=== PATIENT | male | born 1960 | race Caucasian/White ===

== ENCOUNTER 2019-03-08 12:34 | Emergency (ER) | payer OTHER ==
--- NOTE | 2019-03-08 13:00 | ED Physician Documentation ---
PD HPI UPPER EXT INJURY - Stated complaint Stated Complaint: LT RING FINGER INJURY - Chief complaint Chief Complaint: Laceration - History obtained from History obtained from: Patient - History of Present Illness Location: Left, Finger Type of injury: Crush (wood splitter caught tip of finger with flap of tissue laceration and avulsion of nail.) Where injury occurred: Home Timing - onset: Today Timing - details: Abrupt onset, Still present Worsened by: Moving, Palpating Associated symptoms: No: Weakness, Numbness Review of Systems Skin: reports: Laceration (s) Neurologic: denies: Focal weakness, Numbness PD PAST MEDICAL HISTORY - Past Medical History Cardiovascular: None Respiratory: None Psych: None Musculoskeletal: None - Present Medications Home Medications: Ambulatory Orders Medication Instructions Recorded Confirmed Hydrocodone/Acetaminophen [Mosca 1 each PO Q6H PRN #15 tablet 03/08/19 5-325 Tablet] - Allergies Allergies/Adverse Reactions: Allergies Allergy/AdvReac Type Severity Reaction Status Date / Time No Known Drug Allergies Allergy Verified 03/08/19 12:52 PD ED PE NORMAL - Vitals Vital signs reviewed: Yes - General General: Alert and oriented X 3, No acute distress, Well developed/nourished - Derm Derm: Normal color, Warm and dry - Extremities Extremities: Other (the tip of the left middle finger has avulsion of nailbed but the nychial fold area is still intact and normal. There is some lac extending at end of finger just distal to the nailbed, and extends to the palmar pad distal to the DIP. There is sensation at both sides of the tip and has good color and cap refill. He can flex and extend at the DIP joint. ) - Neuro Neuro: Alert and oriented X 3, No motor deficit, No sensory deficit Results - Vitals Vitals: Vital Signs - 24 hr 03/08/19 03/08/19 12:52 14:49 Temperature 36.4 C L Heart Rate 48 L 42 L Respiratory 16 19 Rate Blood Pressure 149/88 H 168/95 H O2 Saturation 99 99 Oxygen O2 Source Room air - Rads (name of study) finger xray Radiology: Prelim report reviewed, EMP read contemporaneously (no fracture nor FB. ), See rad report Procedures - Laceration (location) left middle finger tip Length in cm: 3.2 Wound type: Curved, Flap, Into subcut fat, Into muscle, Clean. No: Contaminated Neurovascular status: Sensory intact, Motor intact, Vascular intact Tendon involvement: Tendon intact Anesthesia: Marcaine 0.5% (digital block) Wound Preparation: Irrigated copiously NS, Wound explored, To the base, Wound edges modified. No: FB identified Skin layer closure: Nylon, Running, Size #-0 - enter number (4), Sutures - enter # (24 including few in nailbed to close it) Other: Patient tolerated well, No complications, Neurovascular intact, Dressing applied, Tetanus UTD Complexity: Intermediate Departure - Departure Disposition: 01 Home, Self Care Clinical Impression: Finger laceration Qualifiers: Encounter type: initial encounter Finger: middle finger Damage to nail status: with damage Foreign body presence: without foreign body Laterality: left Qualified Code(s): S61.313A - Laceration without foreign body of left middle finger with damage to nail, initial encounter Condition: Stable Record reviewed to determine appropriate education?: Yes Instructions: ED Laceration Hand Follow-Up: Virgilio Lazo MD [Primary Care Provider] - Prescriptions: Hydrocodone/Acetaminophen [Mosca 5-325 Tablet] 1 each PO Q6H PRN #15 tablet PRN Reason: Pain Comments: It is okay to wash and shower. Clean off the wound twice a day with soap and water, or peroxide and water. Apply some antibiotic ointment to it to keep it moist. Also to watch for signs of infection such as purulence, redness or increasing pain. Return to your primary care or the ER at the specified time for suture removal. Suture removal 10 to 14 days. Tylenol ibuprofen or naproxen as needed for pains. Add hydrocodone as needed. Protected use of the finger until suture removal and then progress as tolerated after that. Discharge Date/Time: 03/08/19 14:50
[2019-03-08] MEDS ORDERED: BUPIVACAINE 0.5% PF 10 ML VIAL SUBQ STA (13:11)
--- NOTE | 2019-03-08 14:29 | XRAY Report ---
Reason: middle finger crush injury Procedure Date: 03/08/2019 Accession Number: [id number] / [id number] Procedure: XR - Finger(s) LT CPT Code: FULL RESULT: EXAM: LEFT THIRD DIGIT RADIOGRAPHY EXAM DATE: 03/08/2019 02:03 PM. CLINICAL HISTORY: Middle finger crush injury. COMPARISON: None. TECHNIQUE: 3 views. FINDINGS: Bones: Normal. No fracture or bone lesion. Joints: Normal. No subluxations. 2 mm well-corticated ossific accessory ossicle at the dorsal aspect of the third DIP joint. Soft Tissues: Soft tissue concavity/loss at the ulnar aspect of the distal phalanx of the left third finger. No radiopaque foreign body. IMPRESSION: No fracture or radiopaque foreign body. [facility]
[2019-03-08 14:50] VITALS: BP 168/95
== END 2019-03-08 14:50 | disposition home or self-care (01) ==
LOC: ED 12:34
DX: S61.313A Laceration without foreign body of left middle finger with damage to nail, initial encounter (principal); W31.89XA Contact with other specified machinery, initial encounter; Y93.89 Activity, other specified; Y92.009 Unspecified place in unspecified non-institutional (private) residence as the place of occurrence of the external cause
CPT/HCPCS: 12042; 73140